=== PATIENT | male | born 1965 | race African-American/Black ===

== ENCOUNTER 2023-07-01 08:50 | Inpatient (IN) ==
--- NOTE | 2023-06-27 15:16 | Anesthesiology Consultation ---
Date of Service June 27, 2023 Assessment & Plan (1) Encounter for pre-operative examination: - medical out for the day 06/27/23, will call 06/30/[address] Vera to see if patient can walk up a flight of stairs without chest discomfort or shortness of breath and if so, can proceed as scheduled. Surgeon's office made aware. Called Melissa at [facility] 8:25: facility is on lockdown so she will try to arrange having questions answered by patient. Surgeon's office made aware. Melissa called office advising that per HEALTH TYPE TECHNICIAN with facility: patient is walking up flights of stairs denying chest discomfort or shortness of breath. He is acceptable to proceed per discussion with Dr. Vera. - check CBC with diff, BMP, coags, type and screen and UA STAT am DOS. Fluid orders to anesthesiologist review of labs am DOS. - no labs or UA ordered by surgeon received from patient's facility per PAT receptionist secretary. Surgeon's office made aware and advised PAT order labs DOS. - Per debt and budget counselor on 06/11/23: No known infectious disease contacts, current infectious disease symptoms in past 10 days or COVID positive test result in the past 30 days. COVID test ordered for DOS given patient residing at [facility]. Chart Review Chart Review: Acceptable Risk for Surgery and Patient NOT seen in Pre Admission Testing History Surgery Operation Date: 07/01/23 10:35 Proposed Procedures p L4-L5 Lateral Interbody Arthrodesis with Cage Placement, Posterior Non- Segmental Instrumentation, Spinal Cord Monitoring - Bhavesh Alarcon MD Height/Weight Height: 6 ft 1 in Weight: 104.78 kg Allergies Allergy/AdvReac Type Severity Reaction Status Date / Time No Known Allergies Allergy Verified 06/11/23 13:56 Medications Home Medications Medication Instructions Recorded Confirmed Last Taken amlodipine 5 mg tablet 5 mg PO QAM 04/15/22 06/11/23 02/04/23 atorvastatin 20 mg tablet 20 mg PO HS 04/15/22 06/11/23 02/04/23 celecoxib 200 mg capsule 200 mg PO BID 04/15/22 06/11/23 02/23/23 propylene glycol 0.6 % eye drops 1 drp ophthalmic (eye) DAILY PRN 04/15/22 06/11/23 01/24/23 (Systane Complete) Dry Eyes acetaminophen 500 mg tablet 1,000 mg PO BID PRN Pain 06/11/23 06/11/23 Unknown Past Medical History Medical History Corneal ulcer Eye disorder Hyperlipidemia Hypertension Inmate in correctional facility Localized swelling, mass and lump, left upper limb Low back pain Lumbar radiculopathy Nutritional deficiency Spinal stenosis of lumbar region Past Surgical History Surgical History Surgical history unknown Social History Smoking Status: Unknown if ever smoked Testing Electrocardiogram Date: 03/13/23 NSR, rate 66 bpm Possible septal infarct, age undetermined T wave abnormality, consider inferolateral ischemia Compared to 07/04/11 EKG, Septal infarct is now present Nonspecific T wave abnormality has replaced inverted T waves in anterior leads Chest X-Ray Date: 03/12/23 *1view* No acute cardiopulmonary findings. Other Testing Head and neck CTA 03/12/23 Negative CTA of head and neck
[~2023-07-01 08:50] MED LIST: DexMEDEtomidine HCL IV 100 MCG/ML VIAL IV ONE; REMIFENTANIL HCL 1 MG VIAL IV ONE
[2023-07-01] MEDS ORDERED: MIDAZOLAM HCL 1 MG/ML 2ML VIAL ONE (09:21)
[2023-07-01] MEDS ORDERED: fentaNYL citrate PF 100 MCG/2 ML VIAL ONE (09:21)
[2023-07-01] MEDS: LR 60ML/HR IV SCH (09:38)
[2023-07-01 09:47] LABS: Appearance Urine Clear (Clear); Bacteria Urine Automated None Seen (None Seen); Bilirubin Urine Negative (Negative); Blood Urine Trace (Negative); Cast Urine Automated 0-2 /lpf (0-2); Color Urine Yellow; Epithelial Cell Urine Auto 0-2 /hpf (0-2); Glucose Urine UA Negative (Negative); Ketones Urine Negative (Negative); Leukocyte Esterase Urine Negative (Negative); Nitrite Urine Negative (Negative); Protein Urine Negative (Negative); RBC Urine Automated 0-2 /hpf (0-2); Specific Gravity Urine 1.014 (1.000-1.030); Urobilinogen Urine Negative (Negative); WBC Urine Automated 0-5 /hpf (0-5); pH Urine 5.5 (4.5-7.5)
[2023-07-01 09:49] LABS: Basophils # (auto) 0.01 K/uL (0.00-0.20); Basophils % (auto) 0.3 %; Eosinophils % (auto) 2.8 %; Hematocrit (blood only) 40.6 % (42.0-52.0); Lymphocytes # (auto) 0.76 K/uL (1.20-3.40); Lymphocytes % (auto) 21.1 %; Mean Corpuscular Hemoglobin 30.6 pg (25.0-34.0); Mean Corpuscular Hgb Conc 34.5 g/dL (32.0-36.0); Mean Corpuscular Volume 88.6 fL (80.0-100.0); Mean Platelet Volume 11.2 fL (9.4-12.4); Monocytes # (auto) 0.64 K/uL (0.11-0.59); Monocytes % (auto) 17.7 %; Neutrophils % (auto) 58.1 %; Platelet Count 244 K/uL (130-400); RDW Coefficient of Variation 12.5 % (11.5-14.5); RDW Standard Deviation 40.6 fL (36.4-46.3); Red Blood Count 4.58 M/uL (4.70-6.10); White Blood Count 3.61 K/ul (4.8-10.8)
[2023-07-01] MEDS ORDERED: HYDROmorphone INJ 2 MG/ML SYR/VIAL IV PRN (09:53)
[2023-07-01] MEDS ORDERED: ATROPINE SULFATE 0.1 MG/ML 10ML SYR IV PRN (09:53)
[2023-07-01] MEDS ORDERED: fentaNYL citrate PF 100 MCG/2 ML VIAL IV PRN (09:53)
[2023-07-01] MEDS ORDERED: ONDANSETRON INJ 2 MG/ML 2 ML VIAL IV PRN ×2 (09:53→16:51)
[2023-07-01] MEDS ORDERED: ePHEDrine sulfate 50 MG/ML AMP IV PRN (09:53)
[2023-07-01 10:03] LABS: BUN Creatinine Ratio 15.2 (10-20); Calcium 9.4 mg/dl (8.6-10.3); Creatinine Clr Calc Pharmacy 130.6 ml/min; Est GFR (African American) 114.7 ml/min; Potassium 3.7 mmol/L (3.5-5.1)
[2023-07-01 10:18] LABS: Partial Thromboplastin Ratio 0.9; Partial Thromboplastin Time 26 Seconds (21-31)
[2023-07-01] MEDS ORDERED: PROPOFOL IV EMULSION 10 MG/ML 20 ML VIAL IV ONE ×5 (10:27→16:02)
[2023-07-01] MEDS ORDERED: SUCCINYLCHOLINE CHLORIDE 20 MG/ML 10 ML VIAL IV ONE (10:27)
[2023-07-01] MEDS ORDERED: ONDANSETRON INJ 2 MG/ML 2 ML VIAL ONE (10:27)
[2023-07-01] MEDS ORDERED: DEXAMETHASONE SOD INJ 4 MG/ML VIAL ONE (10:27)
[2023-07-01] MEDS ORDERED: LIDOCAINE 2% 2 ML VIAL/AMP(20MG/ML) INFIL ONE (10:27)
[2023-07-01] MEDS ORDERED: GLYCOPYRROLATE 0.2 MG/ML VIAL ONE (10:27)
[2023-07-01] MEDS ORDERED: diphenhydrAMINE 50 MG/ML VIAL ONE (10:27)
[2023-07-01] MEDS ORDERED: PROPOFOL IV EMULSION 10 MG/ML 100 ML VIAL IV ONE (10:29)
[2023-07-01] MEDS ORDERED: VANCOMYCIN CONSULT ACTIVE PRN ×2 (10:57→16:56)
--- NOTE | 2023-07-01 10:59 | History & Physical Bridge Note ---
Date of Service July 01, 2023 History & Physical Bridge Note I have examined the patient, reviewed the History & Physical and in the interval since the performance of the History & Physical I have noted the following changes of clinical significance: no changes noted
[2023-07-01] MEDS: VANCOMYCIN HCL 1,500 MG in SODIUM CHLORIDE 0.9% 500 ML IV STA (11:18)
[2023-07-01] MEDS ORDERED: ePHEDrine sulfate 50 MG/5 ML SYR ONE (12:46)
[2023-07-01] MEDS ORDERED: PHENYLEPHRINE 100MCG/ML 10ML SYR IV ONE (12:46)
[2023-07-01] MEDS ORDERED: PHENYLEPHRINE HCL 10 MG/ML VIAL ONE (12:46)
[2023-07-01] MEDS: BUPIVACAINE/EPINEPHRINE 0.5% MPF 1:200,000 30 ML VIAL ONE (14:30)
[2023-07-01] MEDS ORDERED: HYDROmorphone INJ 2 MG/ML SYR/VIAL ONE (14:57)
[2023-07-01] MEDS: VANCOMYCIN HCL 1000MG/20ML VIAL ONE (16:30)
--- NOTE | 2023-07-01 16:50 | Post Operative Brief Note ---
PG Immediate Post Op with CF Date of Surgery July 01, 2023 Pre & Post Diagnosis Operation Date: 07/01/23 10:35 Pre-Op Diagnosis: Degenrative Spondylolithesis, Lumbar Radiculopathy Post-Op Diagnosis: Degenrative Spondylolithesis, Lumbar Radiculopathy I identified the patient and participated in the time-out.: Yes Procedure Operation Date: 07/01/23 10:35 Actual Procedures p L4-L5 Lateral Interbody Arthrodesis with Cage Placement, Posterior Non- Segmental Instrumentation, Spinal Cord Monitoring(Not Applicable) - Bhavesh Alarcon MD Surgeon Bhavesh Alarcon MD Public Finance Specialist none Estimated Blood Loss 50 Findings Consistent with Post-Op Diagnosis Specimens Specimen Description: none per surgeon Drains Zuniga Catheter
[2023-07-01] MEDS ORDERED: diphenhydrAMINE Capsule 25 MG CAP PO PRN (16:51)
[2023-07-01] MEDS ORDERED: ALUMINUM/MAGNESIUM SUSP 30 ML UDC PO PRN (16:51)
[2023-07-01] MEDS ORDERED: ONDANSETRON 4 MG OD TAB PO PRN (16:51)
[2023-07-01] MEDS ORDERED: LORazepam 0.5 MG TAB PO PRN (16:51)
[2023-07-01] MEDS ORDERED: SOD PHOSPHATE/SOD BIPHOSPHATE ENEMA 132 ML BTL PR PRN (16:51)
[2023-07-01] MEDS ORDERED: METOCLOPRAMIDE HCL INJ 5 MG/ML 2 ML VIAL IV PRN (16:51)
[2023-07-01] MEDS ORDERED: bisacodyL 10 MG SUPP PR PRN (16:51)
[2023-07-01] MEDS ORDERED: ACETAMINOPHEN 1,000 MG/100 ML VIAL IV PRN (16:51)
[2023-07-01] MEDS ORDERED: DO NOT ADMINISTER FLU VACCINE PRN (16:51)
[2023-07-01] MEDS ORDERED: PROMETHAZINE HCL 12.5 MG in SODIUM CHLORIDE 0.9% 50 ML IV PRN (16:51)
[2023-07-01] MEDS ORDERED: FAMOTIDINE 20 MG TAB PO PRN (16:51)
[2023-07-01] MEDS ORDERED: hydrOXYzine HCl 25 MG TAB PO PRN (16:51)
[2023-07-01] MEDS ORDERED: HYDROmorphone INJ 0.5 MG/0.5 ML SYR IV PRN ×2 (16:51→17:07)
[2023-07-01] MEDS ORDERED: LORazepam 0.5 MG in SYRINGE 0.25 ML IV PRN (16:51)
[2023-07-01] MEDS ORDERED: DO NOT ADMINISTER PNEUMOCOCCAL VACCINE PRN (16:51)
[2023-07-01] MEDS ORDERED: MAGNESIUM HYDROXIDE SUSP 30 ML UDC PO PRN (16:51)
[2023-07-01] MEDS ORDERED: NALOXONE HCL 0.4 MG/1 ML VIAL/CARP IV PRN (16:51)
[2023-07-01] MEDS: GELATIN SPONGE 12-7MM ONE (17:07)
[2023-07-01] MEDS: THROMBIN 5000 UNITS KIT ONE (17:08)
--- NOTE | 2023-07-01 19:11 | Anesthesiology Progress Note ---
Date of Service July 01, 2023 Anesthesia Post Procedure Vital Signs Vital Signs: Temp Pulse Pulse Resp BP BP Pulse Ox 07/01/23 18:58 97.5 F L 81 16 137/93 99 07/01/23 18:35 97.2 F L 87 16 128/104 H 97 07/01/23 18:25 91 H 15 132/96 99 07/01/23 18:15 79 17 148/104 H 98 07/01/23 18:05 87 16 108/77 99 07/01/23 17:55 85 15 145/94 H 99 07/01/23 17:45 91 H 12 154/102 H 99 07/01/23 17:30 86 12 148/100 H 99 07/01/23 17:20 93 H 17 149/97 H 99 07/01/23 17:10 87 12 128/79 99 07/01/23 17:02 97.0 F L 88 16 128/96 99 07/01/23 09:38 98.2 F 67 18 132/81 97 O2 Del Method O2 Flow Rate 07/01/23 18:58 Nasal Cannula 2 07/01/23 18:35 Nasal Cannula 2 07/01/23 18:25 Nasal Cannula 3 07/01/23 18:15 Nasal Cannula 3 07/01/23 18:05 Nasal Cannula 3 07/01/23 17:55 Oxymask 6 07/01/23 17:45 Oxymask 6 07/01/23 17:30 Oxymask 6 07/01/23 17:20 Oxymask 9 07/01/23 17:10 Oxymask 9 07/01/23 17:02 Oxymask 9 07/01/23 09:38 Room Air Pain Intensity Right Leg: Pain Intensity: 6 Transfer of Care Handoff Completed per policy Notes Mental Status: alert / awake / arousable and participated in evaluation Patient Amnestic to Procedure: Yes Nausea / Vomiting: adequately controlled Pain: adequately controlled Airway Patency, RR, SpO2: stable & adequate BP & HR: stable & adequate Hydration State: stable & adequate Anesthetic Complications: no major complications apparent and Pt Satisfied with anesthetic care
--- NOTE | 2023-07-01 21:34 | Fluoroscopy Report ---
FL lumbar spine 2-3V CLINICAL HISTORY: L4-L5 LATERAL INTERBODY AND INSTRUMENTATION TECHNIQUE: 12 views were obtained with the C-arm in the OR with the above procedure. Total fluoroscop y time was 442.8 seconds. Radiation dose was 281.01 mGy. Comparison: Comparison is made to lumbar spine radiographs 10/28/2022 and lumbar spine MRI 02/26/2023 FINDINGS/IMPRESSION: Intraoperative images were obtained of L4-L5 interbody fusion. Please correlate with intraoperative fluoroscopy and operative report. ACT 112: Negative or not required by law. Electronically signed by: Sean Molina M.D. 07/01/2023 9:33 PM
[2023-07-01] MEDS: ceFAZolin 2000MG 2,000 MG/15 ML SYR IV SCH (22:28)
[2023-07-01] MEDS: DOCUSATE SODIUM/SENNA 50/8.6MG TAB PO SCH (22:55)
[2023-07-01] MEDS: LACTATED RINGER'S 1,000 ML IV SCH (22:55)
[2023-07-02] MEDS ORDERED: ARTIFICIAL TEARS OP PRN (00:28)
[2023-07-02] MEDS: VANCOMYCIN HCL 1,500 MG in SODIUM CHLORIDE 0.9% 500 ML IV SCH (01:18)
[2023-07-02] MEDS: POLYETHYLENE (MIRALAX) 17 GM PACK PO SCH (06:18)
[2023-07-02] MEDS: amLODIPine BESYLATE 5 MG TAB PO SCH (07:47)
[2023-07-02 09:33] LABS: Basophils # (auto) 0.01 K/uL (0.00-0.20); Basophils % (auto) 0.1 %; Hematocrit (blood only) 39.2 % (42.0-52.0); Hemoglobin 13.5 g/dl (14.0-18.0); Immature Granulocytes # (auto) 0.05 K/uL (0.01-0.20); Immature Granulocytes % (auto) 0.4 %; Lymphocytes # (auto) 0.89 K/uL (1.20-3.40); Lymphocytes % (auto) 7.8 %; Mean Corpuscular Hemoglobin 30.8 pg (25.0-34.0); Mean Corpuscular Hgb Conc 34.4 g/dL (32.0-36.0); Mean Corpuscular Volume 89.3 fL (80.0-100.0); Mean Platelet Volume 11.7 fL (9.4-12.4); Monocytes # (auto) 1.08 K/uL (0.11-0.59); Monocytes % (auto) 9.5 %; Neutrophils # (auto) 9.36 K/uL (1.40-6.50); Neutrophils % (auto) 82.2 %; Platelet Count 250 K/uL (130-400); RDW Coefficient of Variation 12.7 % (11.5-14.5); RDW Standard Deviation 41.7 fL (36.4-46.3); Red Blood Count 4.39 M/uL (4.70-6.10); White Blood Count 11.39 K/ul (4.8-10.8)
[2023-07-02 09:46] LABS: BUN Creatinine Ratio 13.8 (10-20); Creatinine Clr Calc Pharmacy 118.6 ml/min; Est GFR (African American) 110.3 ml/min; Est GFR (Non-African American) 95.1 ml/min; Potassium 3.7 mmol/L (3.5-5.1)
[2023-07-02] MEDS: ACETAMINOPHEN 500 MG TAB PO PRN (12:02)
--- NOTE | 2023-07-02 12:14 | Hospitalist Consultation ---
Date of Consultation July 02, 2023 Assessment & Plan (1) Degenerative spondylolisthesis: s/p L4-L5 lateral interbody arthrodesis with cage placement with Dr. Alarcon 06/30 - fluids, pain control and DVT proh per primary team - EBL 50cc (2) Postoperative fever: Febrile this morning, max temp 38.3 Associated tachycardia No chills or diaphoresis. no cough Given tylenol this afternoon WBC 11 this morning WIll check procal and crp today and labs again in the morning (3) Hyperlipidemia: continue statin (4) Hypertension: continue amlodipine Plan Dispo: recommend continued inpatient stay with fever this morning Thank you for allowing us to participate in the care of this patient, please reach out with any questions or concerns Case discussed with German Solorio, ortho LISA. History of Present Illness Reason for Consultation: medical management Requesting Physician: Agnes Attending Physician: Bhavesh Alarcon MD History of Present Illness Mr. Fabian is a 58M who presented for elective back surgery with Dr. Alarcon. he has a PMH of HLD and HTN. Seen today, overall feeling well but sore from his back. He has been febrile and tachycardic since this morning, but denies chills or diaphoresis. No Urinary symptoms. No cough has been using the incentive spirometer. Tolerating appetite without issue and passing flatus without issue. Has not seen PT yet. Allergies Allergy/AdvReac Type Severity Reaction Status Date / Time No Known Allergies Allergy Verified 07/01/23 09:24 Home Medications Medication Instructions Recorded Confirmed Type amlodipine 5 mg tablet 5 mg PO QAM 04/15/22 07/01/23 History atorvastatin 20 mg tablet 20 mg PO HS 04/15/22 07/01/23 History celecoxib 200 mg capsule 200 mg PO BID 04/15/22 07/01/23 History propylene glycol 0.6 % eye drops 1 drp ophthalmic (eye) DAILY PRN 04/15/22 07/01/23 History (Systane Complete) Dry Eyes acetaminophen 500 mg tablet 1,000 mg PO BID PRN Pain 06/11/23 07/01/23 History Patient History Medical History (Updated 07/02/23 @ 15:04 by Viji Velazquez PA-C) Inmate in correctional facility Nutritional deficiency Low back pain Localized swelling, mass and lump, left upper limb Eye disorder Corneal ulcer Lumbar radiculopathy Spinal stenosis of lumbar region Hyperlipidemia Hypertension Surgical History Surgical history unknown Social History Smoking Status: Unknown if ever smoked Tobacco Type: Cigarettes Preferred Language: Unknown Communication Ability: Effective Hearing Ability: Normal Steam Press Operator Required: No Current Living Situation: Other Current Living Situation Comment: [facility] Feels Safe at Home: Yes Assistive Devices Comment: unknown Review of Systems Review of Systems: All systems reviewed & are unremarkable except as noted in Subjective Physical Exam Physical Exam: General: NAD, sitting up in bed, appears well, VS as above Resp: normal respiratory effort, lungs clear to auscultation CV: RRR, no murmur, Abd: normal bowel sounds, non tender, no hepatosplenomegaly Extremities: Moves all extremities, no edema Back: dressing in place with shadowing Results & Data Results & Data Vital Signs (Past 12 Hours) Vital Signs Temp Pulse Pulse Resp BP Pulse Ox O2 Del Method 07/02/23 11:54 37.5 C 107 H 99 Room Air 07/02/23 11:14 37.6 C H 110 H 18 146/84 H 97 Room Air 07/02/23 10:08 37.4 C 07/02/23 10:00 38 C H 118 H 97 Room Air 07/02/23 07:29 38.3 C H 115 H 18 134/81 97 Room Air 07/02/23 03:01 37.1 C 114 H 18 150/94 H 99 Room Air Laboratory Results CBC and chemistry reviewed PG Care Time/CCT Total # of Minutes Spent Total Time Spent with Patient: Total time spent is greater than 50% in coordination of care (as documented) at patient's floor/unit and/or counseling patient: Coding Level of Care Code 31771 IN/OBS CONSULT LVL 3,45M Diagnoses Degenerative spondylolisthesis M43.10 Postoperative fever R50.82 Hyperlipidemia E78.5 Hypertension I10
--- NOTE | 2023-07-02 15:39 | Operative Report ---
PG Post Operative Report Pre & Post Diagnosis Operation Date: 07/01/23 10:35 Pre-Op Diagnosis: Degenrative Spondylolithesis, Lumbar Radiculopathy Post-Op Diagnosis: Degenrative Spondylolithesis, Lumbar Radiculopathy I identified the patient and participated in the time-out.: Yes Procedure Operation Date: 07/01/23 10:35 Actual Procedures p L4-L5 Lateral Interbody Arthrodesis with Cage Placement, Posterior Non- Segmental Instrumentation, Spinal Cord Monitoring(Not Applicable) - Bhavesh Alarcon MD Surgeon Bhavesh Alarcon MD Client Services Assistant none Estimated Blood Loss 50 Findings Consistent with Post-Op Diagnosis Specimens none Description of Procedure 1. L4-5 left lateral interbody arthrodesis, retroperitoneal approach (95141) 2. Insertion of intervertebral device, NuVasive cohere cage 10 x 22 x 60 mm lordotic (17257) 3. Posterior nonsegmental instrumentation, NuVasive reline (03966) Patient was taken the operating room after adequate anesthesia was carefully positioned in right lateral decubitus position, left side up on the OR table. Positioning was then completed for the procedure and using fluoroscopy I then visualized the L4-5 segment and aligned it for the procedure. Once this was complete preprepped was performed followed by marking and then prepping and draping. Transverse incision was made just over the left iliac crest, and through this I then dissected down carefully subcutaneous tissues to just over the iliac crest. Dissecting through the fascial layer was able to enter the retroperitoneal region followed by then careful manipulation of the tissues anteriorly and then insertion of the initial dilator from the NuVasive set. This was then inserted and advanced down to the lateral aspect of the L4-5 interspace using combination of fluoroscopy and the monitoring. Once is able to locate a proper starting point at about the midportion of the L4-5 disc space, I then inserted the guidewire followed by the initial dilators using monitoring and then the access apparatus. This was then fixed to the table adjustments were made using fluoroscopy, and I then completed the inspection with utilizatio n of the probe inspecting the region. With this completed and found not to have any structures within the opening, I then inserted the cathy followed by then inserting and incising the lateral annulus. An annulotomy was performed followed by then utilizing a number of different instruments to remove the disc material across the disc space. A thorough discectomy was completed with removal of cartilage from the endplates and I continued this process using fluoroscopic control. Trials were then inserted, I elected to go to a 22 mm wide cage, and a 10 mm this provided distraction of the interspace at this level to achieve the indirect decompression. The cage was obtained, and fusion materials were then packed within it and then also in the disc base before inserting the cage. Cage was then advanced into position without issues with excellent placement on AP and lateral views. Final images were obtained, I then removed the access apparatus no issues were noted, vancomycin powder had been placed followed by then closure using 0 and 2-0 Vicryl suture tomeka for the skin, sterile dressing is applied. Patient was then repositioned in prone position on the OSI Sean top table, a preprepped was performed followed by bringing in fluoroscopy where I marked for the approximate location for the bilateral incisions for the insertion of the instrumentation. Prep and drape was performed, and then began the procedure using fluoroscopic Introl to locate the approximate area for the incisions made on both sides for access to the pedicles at L4 and L5. Using the Jamshidi needles I was able to advance these into the L5 vertebral body bilaterally with excellent position and confirmed on monitoring to be in the proper location and fluoroscopy. Guidewires were then set followed by insertion of 5.5 mm taps and then insertion of 6.5 millimeter screws both at this level and in a similar fashion at the L4 level without issue. I then measured for the rods to be inserted which were inserted utilizing the tool through the guides, the inferior screws were then fixed in a slightly proud location relative to the L4 screws and I use a reduction tool to provide a slight amount of continued reduction of the spondylolisthesis. All setscrews were then torqued down properly, final images were obtained, I irrigated and then closed the operative sites with a combination of 0 Vicryl sutures for the fascial layer 2-0 Vicryl sutures and tomeka to skin, vancomycin had been placed in the operative site along with local anesthetic. The patient tolerated procedure well was taken recovery room in satisfactory condition. I attest to the content of the Intraoperative Record and any orders documented therein. Any exceptions are noted below.
[2023-07-02] MEDS: oxyCODONE/ACETAMINOPHEN 5mg/325mg TAB PO PRN (16:50)
[2023-07-02] MEDS: ATORVASTATIN 20 MG TAB PO SCH (22:18)
[2023-07-03 08:06] LABS: Basophils # (auto) 0.03 K/uL (0.00-0.20); Basophils % (auto) 0.3 %; Eosinophils # (auto) 0.01 K/uL (0.00-0.50); Eosinophils % (auto) 0.1 %; Hematocrit (blood only) 39.1 % (42.0-52.0); Hemoglobin 13.6 g/dl (14.0-18.0); Immature Granulocytes # (auto) 0.05 K/uL (0.01-0.20); Immature Granulocytes % (auto) 0.5 %; Lymphocytes # (auto) 0.78 K/uL (1.20-3.40); Lymphocytes % (auto) 7.5 %; Mean Corpuscular Hemoglobin 30.8 pg (25.0-34.0); Mean Corpuscular Hgb Conc 34.8 g/dL (32.0-36.0); Mean Corpuscular Volume 88.7 fL (80.0-100.0); Mean Platelet Volume 11.1 fL (9.4-12.4); Monocytes # (auto) 1.61 K/uL (0.11-0.59); Monocytes % (auto) 15.4 %; Neutrophils # (auto) 7.96 K/uL (1.40-6.50); Neutrophils % (auto) 76.2 %; Platelet Count 227 K/uL (130-400); RDW Coefficient of Variation 12.7 % (11.5-14.5); RDW Standard Deviation 41.9 fL (36.4-46.3); Red Blood Count 4.41 M/uL (4.70-6.10); White Blood Count 10.44 K/ul (4.8-10.8)
[2023-07-03 08:26] LABS: BUN Creatinine Ratio 9.3 (10-20); C Reactive Protein 7.07 mg/dl (0-0.5); Calcium 8.9 mg/dl (8.6-10.3); Est GFR (African American) 110.8 ml/min; Est GFR (Non-African American) 95.6 ml/min; Potassium 3.6 mmol/L (3.5-5.1)
--- NOTE | 2023-07-03 09:48 | XRay Report ---
XR chest 1V portable CLINICAL HISTORY: febrile TECHNIQUE: Single frontal radiograph of the chest was obtained. Comparison: Comparison is made to chest radiograph 03/13/2023 FINDINGS: No lines and tubes are seen. The cardiomediastinal silhouette is normal. The lungs are clear. No evid ence of pleural effusion or pneumothorax. IMPRESSION: No acute abnormalities and in particular no radiographic evidence of pneumonia. ACT 112: Negative or not required by law. Electronically signed by: Sean Molina M.D. 07/03/2023 9:46 AM
--- NOTE | 2023-07-03 10:11 | Orthopedic Progress Note ---
Date of Service July 03, 2023 Assessment & Plan (1) Status post lumbar spine surgery for decompression of spinal cord: At this point, I do not feel that his surgical sites are the cause for him being febrile. I do have a suspicion that he may have an underlying infection burrowing from another source. Hospitalist service is on board with him. They are completing a new chest x-ray today as well as a urinary analysis. At this point, I do not feel that he will be discharged today until we can figure out the source of this fever. He may work with physical therapy today if he feels up to it. Weightbearing as tolerated. I do feel that he is having a little bit of ischial bursitis and this may be because due to position in nature. I did note that he should try to refrain from laying on his left side or at least do frequent position changes to see if this may help. Continue current analgesic regiment. He should not have any NSAIDs for at least [address] Alarcon. Will continue to monitor. Subjective .Isaias was seen today resting at bedside. Dressing changes were completed today with the nurse. He has been complaining about some lateral posterior pain that is adjacent to the ischial bursa as has been going on for the last day. He is also been continuously febrile for the last 24 hours. He really does not complain about any discomfort right at the surgical incision sites itself. He does note that when he stands up he does have a little bit of shooting pain from the ischial tuberosity down his leg. He does note of significance that he has been laying on his left side consistently for the last 24 hours. He does note that he tends to lay/sit on the left side. He denies any other issues today. Review of Systems All systems reviewed & are unremarkable except as noted in HPI & below. Physical Exam . On physical examination of the lumbar spine as well as the lower extremity, dressings were changed and did show slight serosanguineous discharge on the bandage that covered the left lateral surgical site. No active drainage, erythema, warmth to touch, or tenderness out of proportion throughout the surgical sites. Does have tenderness to palpation over the ischial tuberosity. Lower extremity motor and sensory grossly intact. +2 DP and PT pulse. Less than 2-second capillary refill. Normal sensation. Neurovascular intact. Results & Data Results & Data Laboratory Results . Abnormal lab results 07/02/23 07/03/23 Range/Units 16:07 07:20 RBC 4.41 L (4.70-6.10) M/uL Hgb 13.6 L (14.0-18.0) g/dl Hct 39.1 L (42.0-52.0) % Neut # (Auto) 7.96 H (1.40-6.50) K/uL Lymph # (Auto) 0.78 L (1.20-3.40) K/uL Tripp # (Auto) 1.61 H (0.11-0.59) K/uL BUN/Creatinine Ratio 9.3 L (10-20) Glucose 139 H (70-99(Fasting)) mg/dl C-Reactive Protein 2.75 H 7.07 H (0-0.5) mg/dl Diagnostic Findings . PG Care Time/CCT Total # of Minutes Spent Total Time Spent with Patient: Total time spent is greater than 50% in coordination of care (as documented) at patient's floor/unit and/or counseling patient: Coding Level of Care Code 54800 Post Operative Follow-Up Diagnoses Status post lumbar spine surgery for decompression of spinal cord Z98.890
--- NOTE | 2023-07-03 10:55 | Hospitalist Progress Note ---
Date of Service July 03, 2023 Assessment & Plan (1) Degenerative spondylolisthesis: Plan: s/p L4-L5 lateral interbody arthrodesis with cage placement with Dr. Alarcon 06/30 - fluids, pain control and DVT proh per primary team - EBL 50cc (2) Postoperative fever: Plan: Febrile this morning, max temp 38.3. Associated tachycardia No chills or diaphoresis. no cough Source unclear - ortho present for dressing change 07/02, reporting does not appear infection - CXR without PNA - UA without signs of infection - respiratory viral panel negative At this point, will not pursue any other sources of infection without new symptoms. Will recheck labs and recommend reeval of wound in AM Continue IS (3) Hyperlipidemia: Plan: continue statin (4) Hypertension: Plan: continue amlodipine Plan Dispo: recommend continued inpatient stay with fever this morning Thank you for allowing us to participate in the care of this patient, please reach out with any questions or concerns Case discussed with German Solorio ortho LISA. Admission and Anticipated Discharge Date Admission Date: July 01, 2023 Subjective patient seen resting in bed. Still febrile and tachycardic. He does not report any new symptoms such as cough, pain, chills, diaphoresis. Urinating without issues. Denies sick contacts. no BM since surgery Review of Systems Review of Systems: All systems reviewed & are unremarkable except as noted in Subjective Physical Exam Physical Exam: General: NAD, sitting up in bed, appears well, VS as above Resp: normal respiratory effort, lungs clear to auscultation CV: tachycardic, no murmur, Abd: normal bowel sounds, non tender, no hepatosplenomegaly Extremities: Moves all extremities, no edema. No calf tenderness Back: dressing in place c/d/i Results & Data Results & Data Vital Signs (Past 12 Hours) Vital Signs Temp Pulse Resp BP Pulse Ox O2 Del Method 07/03/23 06:18 38.3 C H 112 H 16 146/95 H 96 Room Air Laboratory Results CBC, chemistry and CRP reviewed PG Care Time/CCT Total # of Minutes Spent Total Time Spent with Patient: Total time spent is greater than 50% in coordination of care (as documented) at patient's floor/unit and/or counseling patient: Coding Level of Care Code 68208 SUB INP/OBS CARE 2/35MIN Diagnoses Degenerative spondylolisthesis M43.10 Postoperative fever R50.82 Hyperlipidemia E78.5 Hypertension I10
[2023-07-03 12:48] LABS: Appearance Urine Clear (Clear); Bacteria Urine Automated None Seen (None Seen); Bilirubin Urine Negative (Negative); Blood Urine 1+ (Negative); Color Urine Yellow; Epithelial Cell Urine Auto 0-2 /hpf (0-2); Glucose Urine UA Negative (Negative); Ketones Urine Negative (Negative); Leukocyte Esterase Urine Negative (Negative); Nitrite Urine Negative (Negative); Protein Urine Trace (Negative); Specific Gravity Urine 1.016 (1.000-1.030); Urobilinogen Urine Negative (Negative); WBC Urine Automated 0-5 /hpf (0-5)
[2023-07-03 15:10] LABS: Adenovirus PCR Not Detected (NotDetected); Bordetella parapertussis PCR Not Detected (NotDetected); Bordetella pertussis PCR Not Detected (NotDetected); Chlamydia pneumoniae PCR Not Detected (NotDetected); Coronavirus 229E PCR Not Detected (NotDetected); Coronavirus CoV-2 (COVID19)PCR Not Detected (NotDetected); Coronavirus HKU1 PCR Not Detected (NotDetected); Coronavirus NL63 PCR Not Detected (NotDetected); Coronavirus OC43PCR Not Detected (NotDetected); Human Metapneumovirus PCR Not Detected (NotDetected); Influenza A PCR Not Detected (NotDetected); Influenza B PCR Not Detected (NotDetected); Mycoplasma pneumoniae PCR Not Detected (NotDetected); Parainfluenza Virus 1 PCR Not Detected (NotDetected); Parainfluenza Virus 2 PCR Not Detected (NotDetected); Parainfluenza Virus 3 PCR Not Detected (NotDetected); Parainfluenza Virus 4 PCR Not Detected (NotDetected); Respiratory Syncytial VirusPCR Not Detected (NotDetected); Rhinovirus/Enterovirus PCR Not Detected (NotDetected)
[2023-07-04 06:30] LABS: Basophils # (auto) 0.03 K/uL (0.00-0.20); Basophils % (auto) 0.3 %; Eosinophils # (auto) 0.07 K/uL (0.00-0.50); Eosinophils % (auto) 0.7 %; Hematocrit (blood only) 39.9 % (42.0-52.0); Hemoglobin 13.7 g/dl (14.0-18.0); Immature Granulocytes # (auto) 0.04 K/uL (0.01-0.20); Immature Granulocytes % (auto) 0.4 %; Lymphocytes % (auto) 10.4 %; Mean Corpuscular Hemoglobin 30.3 pg (25.0-34.0); Mean Corpuscular Hgb Conc 34.3 g/dL (32.0-36.0); Mean Corpuscular Volume 88.3 fL (80.0-100.0); Mean Platelet Volume 10.9 fL (9.4-12.4); Monocytes # (auto) 1.58 K/uL (0.11-0.59); Monocytes % (auto) 16.5 %; Neutrophils # (auto) 6.85 K/uL (1.40-6.50); Neutrophils % (auto) 71.7 %; Platelet Count 227 K/uL (130-400); RDW Coefficient of Variation 12.8 % (11.5-14.5); RDW Standard Deviation 41.4 fL (36.4-46.3); Red Blood Count 4.52 M/uL (4.70-6.10); White Blood Count 9.57 K/ul (4.8-10.8)
[2023-07-04 06:50] LABS: BUN Creatinine Ratio 10.1 (10-20); C Reactive Protein 10.34 mg/dl (0-0.5); Calcium 9.3 mg/dl (8.6-10.3); Creatinine Clr Calc Pharmacy 130.6 ml/min; Est GFR (African American) 114.7 ml/min; Potassium 3.9 mmol/L (3.5-5.1)
--- NOTE | 2023-07-04 07:09 | Orthopedic Progress Note ---
Date of Service July 04, 2023 Subjective . Patient seen and examined, he notes continued improvement with minimal or no incisional or back pain. He notes an improvement in his lower extremity numbness and tingling. Afebrile vital signs stable. Incisions unremarkable. WBC 9.57, chest x-ray unremarkable Patient to be discharged today with follow-up in 2 weeks, no anti-inflammatories as a pain medication, acetaminophen only. Review of Systems All systems reviewed & are unremarkable except as noted in HPI & below. Physical Exam . Results & Data Results & Data Laboratory Results . Diagnostic Findings . PG Care Time/CCT Total # of Minutes Spent Total Time Spent with Patient: Total time spent is greater than 50% in coordination of care (as documented) at patient's floor/unit and/or counseling patient: Coding Level of Care Code 15528 Post Operative Follow-Up
--- NOTE | 2023-07-04 09:55 | Hospitalist Progress Note ---
Date of Service July 04, 2023 Assessment & Plan (1) Degenerative spondylolisthesis: Plan: s/p L4-L5 lateral interbody arthrodesis with cage placement with Dr. Alarcon 06/30 - fluids, pain control and DVT proh per primary team - EBL 50cc (2) Postoperative fever: Plan: Febrile 07/02, max temp 38.3. Associated tachycardia No chills or diaphoresis. no cough Source unclear - ortho present for dressing change 07/02, reporting does not appear infection - CXR without PNA - UA without signs of infection - respiratory viral panel negative No new symptoms, however CRP continues to rise. - Will obtain blood cultures. Continue IS (3) Hyperlipidemia: Plan: continue statin (4) Hypertension: Plan: continue amlodipine Plan Dispo: if patient remains afebrile and wound looks uninfected, discharge seems reasonable with outpatient follow up with blood culutres Thank you for allowing us to participate in the care of this patient, please reach out with any questions or concerns Admission and Anticipated Discharge Date Admission Date: July 03, 2023 Subjective Patient seen resting in bed, had been ambulating in the mascorro prior. some pain in right thigh and lower back. Left hip pain has improved. No new cough, dsyuria. Did report episode of lightheadedness and diaphoresis this morning while sitting on the toilet, symptoms spontaneous resolved. Denies chills. Review of Systems Review of Systems: All systems reviewed & are unremarkable except as noted in Subjective Physical Exam Physical Exam: General: NAD, sitting up in bed, appears well, VS as above Resp: normal respiratory effort, lungs clear to auscultation CV: RRR, no murmur, Abd: normal bowel sounds, non tender, no hepatosplenomegaly Extremities: Moves all extremities, no edema. No calf tenderness Back: dressing in place c/d/i Results & Data Results & Data Vital Signs (Past 12 Hours) Vital Signs Temp Pulse Resp BP Pulse Ox O2 Del Method 07/04/23 07:23 36.8 C 95 H 18 150/96 H 96 Room Air Laboratory Results CBC, chemistry, crp and resp viral panel reviewed PG Care Time/CCT Total # of Minutes Spent Total Time Spent with Patient: Total time spent is greater than 50% in coordination of care (as documented) at patient's floor/unit and/or counseling patient: Coding Level of Care Code 64804 SUB INP/OBS CARE 50MIN Diagnoses Degenerative spondylolisthesis M43.10 Postoperative fever R50.82 Hyperlipidemia E78.5 Hypertension I10
--- NOTE | 2023-07-04 11:53 | Discharge Summary ---
Date of Service July 04, 2023 Principal Diagnosis Same as "Discharge Diagnosis" noted below under Discharge Instructions. Discharge Exam .On physical examination of the lumbar spine as well as the lower extremity, dressings were changed and did show slight serosanguineous discharge on the bandage that covered the left lateral surgical site. No active drainage, erythema, warmth to touch, or tenderness out of proportion throughout the surgical sites. Does have tenderness to palpation over the ischial tuberosity. Lower extremity motor and sensory grossly intact. +2 DP and PT pulse. Less than 2-second capillary refill. Normal sensation. Neurovascular intact. Discharge Data Consultations 07/01/23 16:56 Consult Hospitalist Routine Procedures Performed Operation Date: 07/01/23 10:35 Actual Procedures p L4-L5 Lateral Interbody Arthrodesis with Cage Placement, Posterior Non- Segmental Instrumentation, Spinal Cord Monitoring(Not Applicable) - Bhavesh Jackson MD Ordered Studies 07/01/23 10:35 FL lumbar spine 2-3V Routine Hospital Course (1) Status post lumbar spine surgery for decompression of spinal cord: On July 01, 2023 Isaias arrived at [facility] and underwent a L4-L5 lateral interbody arthrodesis with cage placement, posterior nonsegmental instrumentation, spinal cord monitoring performed by Dr. Jackson with no complications. He had a general anesthetic. Postoperatively, he was transferred to the PACU for immediate postoperative care and then transferred to the general orthopedic floor in stable condition. On postoperative day 1, he was a little febrile with a little bit of increased tachycardia. He was able to participate with physical therapy working on ambulation and range of motion exercises. Due to his fever and tachycardia, the hospitalist service felt that he was not stable for discharge. No other significant events occurred on this day. On postoperative day #2, he he was again febrile with tachycardia. Surgical sites were assessed and did not appear to be infectious in nature. Hospitalist service did run a urinary analysis on him as well as another chest x-ray which both showed no significant pathology. Again they did not recommend his discharge at this point. On postoperative day #3, his vital signs were stable and his pain was well-controlled. He again participated well with physi petra therapy working on ambulation and range of motion exercises. Hospital service deemed him medically stable for discharge. He was [facility] the [facility] in [facility] condition. He will follow-up with Dr. Jackson in 2 to 3 weeks for postoperative management. PG Care Time/CCT Total # of Minutes Spent Total Time Spent with Patient: Total time spent is greater than 50% in coordination of care (as documented) at patient's floor/unit and/or counseling patient: Discharge Plan Discharge Items [facility] Disposition: [facility] Reason For Visit: SURGERY Discharge Diagnosis: Same Activity: Per Instructions section Non-emergency contact: Surgeon Call non-emergency contact if: your temperature is above 101.5, your wound has increased redness, your wound has increased drainage and your wound pain has increased Follow-up/Referrals: Alison PALMER [Primary Care Provider] - Diet: Regular Addtl Attending Provider Instructions: Please follow Dr. Jackson Post Operative Instructions that were given in the office upon scheduling surgery. -Dressings will be changed prior to discharge. -Keep Surgical site dry for the next 3 days. -May shower after 3 days with no soaking of the surgical site -May leave surgical site open to air if dry. -Cover the surgical site with a bandage if draining or getting caught on clothes. -Take it easy for the next 2 weeks. (Ex: No Lifting, running, bending, or twisting, etc.). NO NSAIDS FOR ATLEAST 2 MONTHS POST OP. MUST BE CLEARED BY DR. JACKSON BEFORE RESUMING -You will F/u with Dr. Jackson in 2 weeks for postoperative care. -If any questions or concerns in the mean time, Reach out to [facility] at [phone] [facility] [employer] Specialist Provider Instructions: [facility] Medicine: - febrile on and off while inpatient - CXR, UA and respiratory viral panel without signs on infection - Blood cultures drawn 07/03 will need followed up on Pending Studies at Discharge: Yes (blood cultures ) Skilled Items Patient informed of condition?: Yes Discharge Level of Care: Other Communicable Disease: No Discharge Prognosis: Stable Lines: None Urinary Catheter: No Medications and DC Order Prescriptions: Continued Systane Complete 0.6 % drops 1 drp ophthalmic (eye) DAILY PRN (Reason: Dry Eyes) atorvastatin 20 mg tablet 20 mg PO HS amlodipine 5 mg tablet 5 mg PO QAM acetaminophen 500 mg Tablet 1,000 mg PO BID PRN (Reason: Pain) Discontinued celecoxib 200 mg capsule 200 mg PO BID Discharge Orders: Discharge Order (Routine); Ordered 07/04/23 Ordered By: German Solorio Admission Data Admit Date/Time: 07/03/23 16:01 Attending Provider: Bhavesh Jackson Admit Provider: Bhavesh Jackson Primary Care Provider: Alison PALMER Other Providers: José Miguel Valenzuela Other Interventions: Discharge Summary Assessment (RN) Last Done: 07/04/23 09:59
== END 2023-07-04 12:39 | DRG 460 ==
LOC: 3E 08:50 → ASU 08:50

== ENCOUNTER 2024-10-21 07:03 | Observation (INO) ==
--- NOTE | 2024-10-20 08:30 | Anesthesiology Consultation ---
Date of Service October 20, 2024 Assessment & Plan (1) Encounter for pre-operative examination: - medical clearance 10/19/24: "...may proceed to OR for TKA, labs checked, EKG ordered, low cardiac risk in adrian-op period..." Young with surgeon's office advised myself that the skilled nursing obtained a CXR today on patient as they thought it was required for surgery, but it will not result prior to surgery. Young states she spoke with Dr. Marina as he did not order one/and states he advised does not need report and it was documented in error as being needed in H&P. Case discussed in detail with Dr. Hargrove who advised patient is acceptable to proceed without CXR report. - Outpatient joint assessment: Patient is currently scheduled for inpatient pathway. If re-evaluated and patient/surgeon requests outpatient pathway, patient is not advised candidate for outpatient joint program from anesthesia standpoint. - Per environmental conservation professor on 10/20/24: No known infectious disease contacts, current infectious disease symptoms in past 10 days or COVID positive test result in the past 30 days. Chart Review Chart Review: Acceptable Risk for Surgery and Patient NOT seen in Pre Admission Testing History Surgery Operation Date: 10/21/24 09:10 Proposed Procedures p Right Total Knee Arthroplasty - Sang Marina MD Height/Weight Height: 6 ft 1 in Weight: 105 kg Allergies Allergy/AdvReac Type Severity Reaction Status Date / Time No Known Allergies Allergy Verified 10/20/24 14:01 Medications Home Medications Medication Instructions Recorded Confirmed Last Taken amlodipine 5 mg tablet 5 mg PO QAM 04/15/22 10/20/24 06/29/23 atorvastatin 20 mg tablet 20 mg PO QAM 04/15/22 10/20/24 06/29/23 celecoxib 200 mg capsule (Celebrex) 200 mg PO BID 10/20/24 10/20/24 Unknown Past Medical History Medical History (Updated 10/20/24 @ 14:04 by Freida Schumacher RN) Corneal ulcer Eye disorder Hyperlipidemia Hypertension Inmate in correctional facility Localized swelling, mass and lump, left upper limb Low back pain Osteoarthritis, knee Seasonal allergic rhinitis Past Surgical History Surgical History (Updated 10/20/24 @ 14:05 by Freida Schumacher RN) History of lumbar surgery (07/01/23) L4-L5 Lateral Interbody Arthrodesis with Cage Placement, Posterior Non- Segmental Instrumentation>MN Surgical history unknown Social History Smoking Status: Unknown if ever smoked Testing Laboratory Results 10/08/24 WBC: 3.2 H/H: 13/43 PLATELETS: 264,000 SODIUM: 141 POTASSIUM: 4 CHLORIDE: 105 CO2: 23 BUN: 10 CREATININE: 0.9 GLUCOSE: 99 Alk phos: 101 AST: 200 ALT: 13 PT: 11.7 INR: 1 UA: negative Urine culture: multiple organisms consistent with urethral robyn present at > 10,000 cfu/ml; no predominant organism present Electrocardiogram Date: 10/19/24 *unconfirmed* Significant artifact in lateral leads Other Testing Head and neck CTA 03/12/23 Negative CTA of head and neck
[~2024-10-21 07:03] MED LIST changes: +BUPIVACAINE 0.5 % 5 MG/1 ML PF 10ML VIAL ONE; -DexMEDEtomidine HCL IV 100 MCG/ML VIAL IV ONE; +EPINEPHrine INJ 1 MG/ML AMP ONE; +PROPOFOL IV EMULSION 10 MG/ML 100 ML VIAL IV ONE; -REMIFENTANIL HCL 1 MG VIAL IV ONE; +ROPIVACAINE 0.5% 5 MG/ML 30 ML VIAL ONE
[2024-10-21] MEDS ORDERED: LIDOCAINE 2% 2 ML VIAL/AMP(20MG/ML) INFIL ONE (07:35)
[2024-10-21] MEDS ORDERED: MIDAZOLAM HCL 1 MG/ML 2ML VIAL ONE (07:38)
[2024-10-21] MEDS: LR 500ML BOLUS, THEN 15ML/HR IV SCH (08:09)
[2024-10-21] MEDS: ACETAMINOPHEN 500 MG TAB PO SCH ×2 (08:14→14:57)
[2024-10-21] MEDS: FAMOTIDINE 20 MG TAB PO SCH (08:14)
[2024-10-21] MEDS: CeleBREX 200 MG CAP PO SCH (08:14)
[2024-10-21] MEDS: dexAMETHasone**PF** 10 MG/ML VIAL IV SCH (08:15)
[2024-10-21] MEDS: TRANEXAMIC ACID 1,000 MG **IV Pre-op IV SCH (08:31)
--- NOTE | 2024-10-21 08:31 | History & Physical Bridge Note ---
Date of Service October 21, 2024 History & Physical Bridge Note I have examined the patient, reviewed the History & Physical and in the interval since the performance of the History & Physical I have noted the following changes of clinical significance: no changes noted
[2024-10-21] MEDS ORDERED: PROPOFOL IV EMULSION 10 MG/ML 20 ML VIAL IV ONE (08:55)
[2024-10-21] MEDS ORDERED: KETAMINE HCL 10MG/ML SYR ONE (08:56)
[2024-10-21] MEDS ORDERED: DexMEDEtomidine HCL IV 100 MCG/ML VIAL IV ONE (09:27)
[2024-10-21] MEDS ORDERED: HYDROmorphone INJ 2 MG/ML SYR/VIAL ONE (09:33)
[2024-10-21] MEDS ORDERED: GLYCOPYRROLATE 0.2 MG/ML VIAL ONE (09:34)
[2024-10-21] MEDS ORDERED: ONDANSETRON INJ 2 MG/ML 2 ML VIAL ONE (09:53)
[2024-10-21] MEDS: ROPIV 0.5% 246mg, Ketorolac 30mg, EPINEPHrine 0.5mg in NSS INFIL SCH (10:07)
--- NOTE | 2024-10-21 11:02 | Operative Report ---
Post Operative Report Pre & Post Diagnosis Operation Date: 10/21/24 09:10 Pre-Op Diagnosis: Right Knee Osteoarthritis Post-Op Diagnosis: Right Knee Osteoarthritis I identified the patient and participated in the time-out.: Yes Procedure Operation Date: 10/21/24 09:10 Actual Procedures p Right Total Knee Arthroplasty(Right) - Sang Marina MD Surgeon Sang Marina MD [facility] Worker Orlin Ernst PA-C. No resident or fellow was available to assist Estimated Blood Loss 100 Findings Consistent with Post-Op Diagnosis Specimens Right knee bone and soft tissue contents Anesthesia Type General Regional Complications none Disposition Disposition: Recovery Room Indications 59-year-old male with right knee osteoarthritis refractory to conservative management. X-rays demonstrate varus malalignment, tricompartmental osteophyte formation and severe joint space narrowing. I do long discussion with him about the risks and benefits of surgery, alternatives to surgery, and expected outcomes. After reviewing all these he elected to proceed with surgery. All questions were answered. Informed consent was signed. Description of Procedure Patient was identified in the preoperative holding area where the surgical site, right knee, was marked. Adductor canal block was placed by anesthesia. Patient was brought back to the operating room, placed on the operating room table, and general anesthesia was administered. A bump was placed underneath the ipsilateral hip. All bony prominences were padded. Perioperative antibiotics and tranexamic acid were administered. Exam under anesthesia was performed. This demonstrated range of motion arc from 15 to 85 degrees. Stable to varus and valgus stress test at 30 degrees. The surgical site was prepped and draped in the normal sterile fashion. Prior to incision a multidisciplinary timeout was called. All in the room were in agreement. We began by exsanguinating the limb with an Esmarch bandage. Tourniquet was inflated to 250 mmHg. A 14 cm long incision was made over the anterior aspect of the knee. I dissected through the subcutaneous tissues to the level of the fascia. Full-thickness flaps were raised above the fascia. A median parapatellar arthrotomy was made. Half the fat pad was excised. A medial release was performed with Bovie electrocautery on the proximal tibia. Synovitis in the knee and suprapatellar pouch was removed. The patella was then everted and held with 2 towel clips. The thickness of the patella was measured at 26 mm. Patellar resection was performed. Caliper showed the patella thickness now to be 16 mm. A size 41 trial was placed, centered on the cut surface. There was still a little bit of the bone uncovered, however this is the largest patellar component. The 3 drill holes were placed then the trial button was placed. The patellar thickness was now 26 mm which I was very happy with. The patellar trial was then removed, and the knee was flexed up. Retractors were placed to protect the MCL and LCL. Osteophytes were removed from the femoral condyles and intercondylar notch. The ACL and PCL were excised. Intramedullary drill guide was drilled into the femur. Distal femoral cutting guide was placed set at 5 degrees of valgus to resect 12 mm off the distal femur because of his flexion contracture. Distal femoral resection was made without difficulty. Next the epicondylar axis and Whitesides line were marked out on the distal femoral cut. Femoral sizing guide was placed. External rotation was set at 3 degrees so that the posterior cut would be parallel with the epicondylar axis and perpendicular with Whitesides line. The patient sized to a size 7 femur. 2 pins were then placed through the jig into the distal femur. The jig was removed and the appropriately sized 4-in-1 cutting jig was placed over the pins, then fixated to the bone using threaded, headed pins. We confirmed that we would not notch the femur with our anterior cut. Our 4 cuts were then made. The cutting jig was removed. The tibia was then exposed. The lateral meniscus was sharply excised. The tibial cutting jig was positioned in line with the tibial shaft in the coronal plane and with 3 degrees of posterior slope in the sagittal plane to resect 4 mm off the more involved medial tibial plateau. The jig was then pinned in position and the tibial cut was made. We then brought the knee into full extension. Lamina spreaders were placed. The medial meniscus was excised. The extension block was then placed for 6 mm thickness poly. This gave us full extension and excellent stability to varus and valgus stress. The flexion block was then placed with the knee held at 90 degrees. There was excellent stability to varus and valgus at 90 degrees with no gapping medially or laterally. Next the box cutting jig was placed on the distal femur. The box cut was made and the femoral trial was impacted into position. Lug holes were drilled in the distal femur. We then reexposed the tibia. The tibia was sized to a 7 for a fixed bearing component and pinned in external rotation on the cut tibial surface. The intramedullary drill followed by the keel punch were used to prepare the tibia. The tibial tray with a 6 mm thickness polyethylene liner was placed and the knee was brought through a full range of motion. There was excellent stability to varus valgus stress throughout a full range of motion, which was approximately 0-125 degrees. Next the trial components were removed. I then injected the posterior capsule and periosteum with the periarticular injection cocktail. The bone cuts were then irrigated and dried while the cement was mixed on the back table. The femoral component was cemented on first. Excess cement was removed. A lap sponge was placed over the femoral component for protection, then the tibia was subluxated anteriorly. The all polyethylene tibial component was then cemented in place. Again excess cement was removed. The knee was brought into full extension and held there until the cement cured. The patella was cemented and clamped. Dilute Betadine solution was then allowed to soak in the knee while the cement cured. Once the cement was fully cured, the knee was irrigated out, the tourniquet was let down and meticulous hemostasis was ensured. The knee was brought through a full range of motion. I was were very happy with the patella tracking and the stability. We then began to close. Interrupted 0 Vicryl suture was used to repair the patellar retinaculum in [id number] fashion. The quadriceps and patellar tendons were run with #1 Vicryl. The deep dermal layer was closed with interrupted 2-0 Vicryl. Dermabond and Zipline was used for the skin, followed by a Silverlon dressing. A compressive Alex wrap was placed and the knee was placed into a knee immobilizer. Patient's sedation was lifted and was transferred to recovery room in stable condition. Summary of implants: Depuy Attune Posterior Stabilized Cemented Femur, size 7 right Attune All-polyethylene tibial component, posterior stabilized 6 mm thickness, size 7 Attune patella medialized dome, size 38 2 batches of Palacos bone cement Postoperative course: Of note, patient had some T wave inversions during the case. He was evaluated by the anesthesiologist Dr. Patton. Plan will be for a twelve-lead EKG to be done in the PACU. Hospitalist service will be consulted for comanagement. Patient will be admitted to the telemetry floor for pain control and monitoring. Weightbearing as tolerated with a walker with no knee range of motion for 48 hours. Aspirin for DVT prophylaxis. I attest to the content of the Intraoperative Record and any orders documented therein. Any exceptions are noted below.
--- NOTE | 2024-10-21 11:33 | Operative Report ---
Post Operative Report Pre & Post Diagnosis Operation Date: 10/21/24 09:10 Pre-Op Diagnosis: Right Knee Osteoarthritis Post-Op Diagnosis: Right Knee Osteoarthritis I identified the patient and participated in the time-out.: Yes Procedure Operation Date: 10/21/24 09:10 Actual Procedures p Right Total Knee Arthroplasty(Right) - Sang Marina MD Surgeon Sang Marina MD Pay Clerk Orlin Ernst PA-C. No resident or fellow was available to assist Estimated Blood Loss 100 Findings Consistent with Post-Op Diagnosis Specimens Right knee bone and soft tissue contents Description of Procedure I was present for the entire case. I assisted with patient positioning, prepping, draping, retraction, suctioning, wound closure, dressing application, splint application. Please refer to Dr. Marina's procedure note for full details. I attest to the content of the Intraoperative Record and any orders documented therein. Any exceptions are noted below.
[2024-10-21] MEDS ORDERED: HYDROmorphone INJ 1 MG/ML SYRINGE IV PRN (11:44)
[2024-10-21] MEDS ORDERED: ONDANSETRON INJ 2 MG/ML 2 ML VIAL IV PRN ×2 (11:44→13:25)
[2024-10-21] MEDS: HYDROmorphone INJ 2 MG/ML SYR/VIAL ONE (11:44)
[2024-10-21] MEDS ORDERED: FLUMAZENIL 0.1 MG/1 ML 10 ML VIAL IV PRN (11:44)
[2024-10-21] MEDS ORDERED: NALOXONE HCL 0.4 MG/1 ML VIAL/CARP IV PRN ×2 (11:44→13:25)
[2024-10-21] MEDS ORDERED: ATROPINE SULFATE 0.1 MG/ML 10ML SYR IV PRN (11:44)
[2024-10-21] MEDS ORDERED: PROMETHAZINE HCL 6.25 MG in SODIUM CHLORIDE 0.9% 50 ML IV PRN (11:44)
--- NOTE | 2024-10-21 12:26 | XRay Report ---
XR knee RT 1 or 2V routine CLINICAL HISTORY: Surgical Post Op COMPARISON: 10/15/2024 FINDINGS: Right knee prosthesis shows no hardware complication. There is expected soft tissue gas. IMPRESSION: Unremarkable postoperative exam. ACT 112: Negative or not required by law. Electronically signed by: Delvis Plascencia M.D. 10/21/2024 12:24 PM
[2024-10-21] MEDS ORDERED: HYDROmorphone INJ 0.5 MG/0.5 ML SYR IV PRN (13:25)
[2024-10-21] MEDS ORDERED: diphenhydrAMINE 50 MG/ML VIAL IV PRN (13:25)
[2024-10-21] MEDS ORDERED: MAGNESIUM HYDROXIDE SUSP 30 ML UDC PO PRN (13:25)
[2024-10-21] MEDS ORDERED: METOCLOPRAMIDE HCL INJ 5 MG/ML 2 ML VIAL IV PRN (13:25)
[2024-10-21] MEDS ORDERED: TAMSULOSIN HCL 0.4 MG CAP PO PRN (13:25)
--- NOTE | 2024-10-21 13:57 | Anesthesiology Progress Note ---
Date of Service October 21, 2024 Anesthesia Post Procedure Vital Signs Vital Signs: Temp Pulse Pulse Resp BP BP Pulse Ox 10/21/24 12:53 76 16 140/89 96 10/21/24 12:45 77 18 156/86 H 97 10/21/24 12:35 78 14 153/93 H 96 10/21/24 12:25 36.6 C 74 16 149/96 H 97 10/21/24 12:15 36.4 C L 79 15 144/99 H 96 10/21/24 12:05 80 15 148/86 H 99 10/21/24 11:55 79 14 170/98 H 99 10/21/24 11:45 79 19 157/67 H 95 10/21/24 11:35 80 18 152/98 H 98 10/21/24 11:25 80 15 150/103 H 96 10/21/24 11:16 36.0 C L 79 15 138/94 95 10/21/24 08:59 73 20 151/85 H 100 10/21/24 07:29 36.8 C 66 20 146/86 H 100 O2 Del Method O2 Flow Rate 10/21/24 12:53 Nasal Cannula 2 10/21/24 12:45 Nasal Cannula 2 10/21/24 12:35 Nasal Cannula 2 10/21/24 12:25 Nasal Cannula 2 10/21/24 12:15 Nasal Cannula 2 10/21/24 12:05 Nasal Cannula 2 10/21/24 11:55 Nasal Cannula 2 10/21/24 11:45 Nasal Cannula 2 10/21/24 11:35 Oxymask 8 10/21/24 11:25 Oxymask 8 10/21/24 11:16 Oxymask 8 10/21/24 08:59 Oxymask 10/21/24 07:29 Room Air Pain Intensity Right Knee: Pain Intensity: 2 Transfer of Care Handoff Completed per policy Notes Mental Status: alert / awake / arousable Patient Amnestic to Procedure: Yes Nausea / Vomiting: adequately controlled Pain: adequately controlled Airway Patency, RR, SpO2: stable & adequate BP & HR: stable & adequate Hydration State: stable & adequate Anesthetic Complications: no major complications apparent
--- NOTE | 2024-10-21 14:41 | Hospitalist Consultation ---
Date of Consultation October 21, 2024 Assessment & Plan (1) T wave inversion in EKG: Plan T wave inversion on monitor during R. TKA - Reported T-wave inversions seen by anesthesia during procedure - No chest symptoms, dyspnea, or abdominal symptoms - EKG from PACU not in chart, will order new EKG and review - Hx of HTN, HLD, male on statin and amlodipine therapy - Low probability of NSTEMI/ACS - High sensitivity troponin: 5.5 - Will sign off at this time, but will revisit if new EKG changes or chest symptoms arise Supervising Physician Co-Signing Physician Notes I personally examined the patient and verified all pope points of history and exam, discussed case, and agree with decision making with Dr Tyson feels fine. no cp no sob. exercises regularly (right now upper body/weights) but no CP/ANGELO wtih exertion. notes pins and needles feelings in both feet - seems to describe mostly on top of foot - ongoing for about a year vitals noted nad heent nc at mmm breathing unlabored no accessory muscles good effort troponin 5.5, EKG with diffuse flipped T's but more or less identical to 02/2023 EKG flipped Ts during anesthesia -nonspecific. lack of acute sx, lack of true ST depressions, normal hs-trop all quite reassuring -no prior vascular disease noted and no exertional sx (despite what sounds to be good exercise tolerance) also reasssuring obviously if he were to develop sx that we would want to evaluate devorah; should he develop exertional sx in the future also would want to evaluate - but at this time, t wave changes appear nonspecific and no other ominous findings noted foot paresthesiae - seem in line with the area of his spinal stenosis and timing seems to ?predate or at least correlate with when he needed surgery. on directed questioning no worsening, and does not seem to have motor sx. offered explanations and reassurance, he wanted me to inform his spine surgeon (notified - although to be clear no formal inpatient consult is needed at this time) DVT proph - per ortho (SCDs and asa bid) History of Present Illness Reason for Consultation: T-wave inversions during R. TKA Requesting Physician: Sang Marina MD Attending Physician: Sang Marina MD History of Present Illness Isaias Fabian is a 59 y/o M with a past medical history of HTN, DJD, lumbar radiculopathy, lumbar spinal stenosis recently at [facility] for a R. TKA procedure. Patient reports no issues during the procedure but was found to have T-wave inversions and the hospitalist team was consulted for an admission to the medical surgery unit. Patient seen, resting and eating comfortably at bedside. Patient denies chest pain, palpitations, skipped beats, SOB w/ exertion/rest, cough, wheeze, abdominal pain, reflux, nausea, and vomiting. Patient without any acute complaints and reports no pain. Patient's only concern is rehabilitation instructions for knee post-op. As patient has relatively low-risk, no chest symptoms/dyspnea/abdominal symptoms, and transient T-wave inversions found on surgical channeling machine runner, NSTEMI is low probability. 12 lead EKG is recommended to revisit T-wave abnormalities, and other ASCVD risks and risk stratification can be determined via age, demographic, lipid, diabetes, smoking, HTN risk factors but as stated above without 12 lead EKG supporting T-wave inversions, new symptoms related to CVD, or evidence of myocardial ischemia ACS probability is low. Allergies Allergy/AdvReac Type Severity Reaction Status Date / Time No Known Allergies Allergy Verified 10/21/24 07:31 Home Medications Medication Instructions Recorded Confirmed Type amlodipine 5 mg tablet 5 mg PO QAM 04/15/22 10/21/24 History atorvastatin 20 mg tablet 20 mg PO QAM 04/15/22 10/21/24 History celecoxib 200 mg capsule (Celebrex) 200 mg PO BID 10/20/24 10/21/24 History Patient History Medical History (Updated 10/21/24 @ 15:00 by Nikunj Tyson DO) Seasonal allergic rhinitis Osteoarthritis, knee Hypertension Hyperlipidemia Inmate in correctional facility Low back pain Localized swelling, mass and lump, left upper limb Eye disorder Corneal ulcer Surgical History History of lumbar surgery (07/01/23) L4-L5 Lateral Interbody Arthrodesis with Cage Placement, Posterior Non- Segmental Instrumentation>MN Surgical history unknown Social History Smoking Status: Former smoker Tobacco Type: Cigarettes Smoking End Date: 2004; Hx Alcohol Use: No Hx Substance Use: No Preferred Language: Dominican Communication Ability: Effective Hearing Ability: Normal [place] Required: No Beliefs That Will Affect Care: None Current Living Situation: Other Current Living Situation Comment: [facility] Other Information That Helps Us Care for You: No Feels Safe at Home: Yes Safety Concerns: Feels Safe At This Time Assistive Devices: Walker Physical Exam Physical Exam: General: patient resting comfortably, NAD, non-toxic in appearance, answers questions appropriately. Skin: warm, dry, intact HEENT: NC/AT, anicteric sclera, conjunctiva without injection, moist mucus membranes. Heart: +S1/S2, tachycardia, no m/r/g Lungs: equal air entry bilaterally, no rales/rhonchi/wheezes Abd: +BS, soft, NT/ND Ext: warm, no clubbing/cyanosis or edema Neuro: nonfocal, speech intact, no facial droop, moving all extremities. Results & Data Results & Data Vital Signs (Past 12 Hours) Vital Signs Temp Pulse Pulse Resp BP BP Pulse Ox 10/21/24 13:40 36.9 C 91 H 14 161/82 H 97 10/21/24 12:53 76 16 140/89 96 10/21/24 12:45 77 18 156/86 H 97 10/21/24 12:35 78 14 153/93 H 96 10/21/24 12:25 36.6 C 74 16 149/96 H 97 10/21/24 12:15 36.4 C L 79 15 144/99 H 96 10/21/24 12:05 80 15 148/86 H 99 10/21/24 11:55 79 14 170/98 H 99 10/21/24 11:45 79 19 157/67 H 95 10/21/24 11:35 80 18 152/98 H 98 10/21/24 11:25 80 15 150/103 H 96 10/21/24 11:16 36.0 C L 79 15 138/94 95 10/21/24 08:59 73 20 151/85 H 100 10/21/24 07:29 36.8 C 66 20 146/86 H 100 O2 Del Method O2 Flow Rate 10/21/24 13:40 Nasal Cannula 1 10/21/24 12:53 Nasal Cannula 2 10/21/24 12:45 Nasal Cannula 2 10/21/24 12:35 Nasal Cannula 2 10/21/24 12:25 Nasal Cannula 2 10/21/24 12:15 Nasal Cannula 2 10/21/24 12:05 Nasal Cannula 2 10/21/24 11:55 Nasal Cannula 2 10/21/24 11:45 Nasal Cannula 2 10/21/24 11:35 Oxymask 8 10/21/24 11:25 Oxymask 8 10/21/24 11:16 Oxymask 8 10/21/24 08:59 Oxymask 10/21/24 07:29 Room Air Resident Activity Tracking Resident Involvement: Resident Care Provided Care Provided: Adult Hospital Medicine
[2024-10-21] MEDS: LABETALOL HCL IV 5 MG/ML 20ML IV STA (14:55)
[2024-10-21] MEDS: KETOROLAC TROMETHAMINE 15 MG/ML VIAL IV SCH (14:57)
[2024-10-21] MEDS: SODIUM CHLORIDE 0.9% 1,000 ML IV SCH (15:00)
--- NOTE | 2024-10-21 17:08 | Billing Data ---
Date of Service October 21, 2024 Coding Level of Care Code 63541 SUB INP/OBS CARE MIN
[2024-10-21] MEDS: Scopolamine CHECK PATCH PLACEMENT SCH (17:17)
[2024-10-21] MEDS: TRANEXAMIC ACID / 0.7% NACL 1,000 MG/100 ML BAG IV SCH (17:20)
[2024-10-21] MEDS: DOCUSATE SODIUM 100 MG CAP PO SCH (20:17)
[2024-10-21] MEDS: SENNA 8.6 MG TAB PO SCH (20:17)
[2024-10-21 20:25] VITALS: RESP 18
[2024-10-22 03:54] LABS: Hematocrit (blood only) 33.0 % (42.0-52.0); Hemoglobin 11.5 g/dl (14.0-18.0); Mean Corpuscular Hemoglobin 30.6 pg (25.0-34.0); Mean Corpuscular Volume 87.8 fL (80.0-100.0); Platelet Count 236 K/uL (130-400); RDW Standard Deviation 40.7 fL (36.4-46.3); Red Blood Count 3.76 M/uL (4.70-6.10); White Blood Count 10.94 K/ul (4.8-10.8)
[2024-10-22 04:08] LABS: Anion Gap 9.0 (3-11); Blood Urea Nitrogen 13.0 mg/dl (6-23); Calcium 8.3 mg/dl (8.6-10.3); Carbon Dioxide 21.0 mmol/L (21-32); Chloride 108.0 mmol/L (98-107); Creatinine Clr Calc Pharmacy 89.3 ml/min; Glucose 134.0 mg/dl (70-99(Fasting)); Potassium 3.6 mmol/L (3.5-5.1); Sodium 138.0 mmol/L (136-145)
--- NOTE | 2024-10-22 05:14 | Electrocardiogram Report ---
Test Reason : Blood Pressure : */* mmHG Vent. Rate : 87 BPM Atrial Rate : 87 BPM P-R Int : 200 ms QRS Dur : 84 ms QT Int : 368 ms P-R-T Axes : 48 23 -33 degrees QTcB Int : 442 ms Sinus rhythm with Premature atrial complexes T wave abnormality, consider inferolateral ischemia Abnormal ECG When compared with ECG of 21-Oct-2024 11:31, Premature atrial complexes are now Present Confirmed by Yunior Simental ([id number]) on 10/22/2024 5:14:08 AM Referred By: Sang Marina Confirmed By: Yunior Simental
[2024-10-22 06:07] VITALS: O2SAT 98
[2024-10-22 07:43] VITALS: TEMP 99.3
[2024-10-22] MEDS: ASPIRIN 81 MG ECTAB PO SCH (09:35)
[2024-10-22] MEDS: ATORVASTATIN 20 MG TAB PO SCH (09:35)
[2024-10-22] MEDS: MULTIVITAMIN TAB PO SCH (09:35)
[2024-10-22] MEDS: dexAMETHasone 10 MG in SYRINGE 0 ML IV SCH (09:37)
[2024-10-22] MEDS ORDERED: KETOROLAC TROMETHAMINE 15 MG/ML VIAL ONE (10:24)
--- NOTE | 2024-10-22 11:27 | Discharge Summary ---
Date of Service October 22, 2024 Principal Diagnosis Right knee osteoarthritis. Status post right total knee arthroplasty. Discharge Data Allergies Allergy/AdvReac Type Severity Reaction Status Date / Time No Known Allergies Allergy Verified 10/21/24 07:31 Consultations 10/21/24 13:25 Consult Hospitalist Routine Procedures Performed Operation Date: 10/21/24 09:10 Actual Procedures p Right Total Knee Arthroplasty(Right) - Sang Marina MD Hospital Course (1) S/P total knee arthroplasty: Isaias Fabian is a 59-year-old male inmate history of hypertension, high cholesterol, osteoarthritis, who underwent a right total knee arthroplasty with Dr. Marina on 10/21/[address] [facility]. Surgery was uncomplicated. He was admitted to the hospital for observation. Patient received 24 hours of IV Ancef postoperatively. His pain was controlled with Tylenol, anti-inflammatories, and prescription pain medication. He remained stable throughout his postoperative course. Anesthesia was concerned that he may have some inverted T waves during surgery, so a consultation with the hospitalist group was placed. He was evaluated by them and given his lack of symptoms and largely unchanged EKG findings, was cleared with no additional follow-up necessary unless he becomes symptomatic. His postoperative x-ray did not show any acute complications. Postoperative blood work showed a mild elevation of white blood cells at 10.94 likely secondary to stress of surgery and steroids. Mild anemia with a hemoglobin of 11.5 likely secondary to acute blood loss from surgery. His Alex wrap was removed and the underlying silverlon dressing was clean, dry, intact. Patient was given wound care instructions postoperatively. He is able to shower as long as the dressing is intact. He was instructed not to submerge the wound underwater. Patient was evaluated by PT and OT and cleared to return back to [facility] Advised him that he would benefit from using a raised toilet seat, shower bench in the [facility]. He will use a rolling walker at all times when ambulating. Will use a knee immobilizer for the first 48 hours during ambulation and then as long as his quad function has returned he can discontinue the knee immobilizer. He was instructed to ice 20 minutes every 1-2 hours. Ice 20 minutes every 1-2 hours. DVT prophylaxis aspirin 81 mg twice daily. JAYESH stockings for the first 2 weeks. Pain management: Tylenol 1000 mg every 8 hours. He will resume his Celebrex as prescribed. Per records he is taking 200 mg twice daily. Instructed him that he should only be taking this for 2 weeks at this dose, and then should reduce to either 200 mg once daily or 100 mg twice daily. He will likely benefit from prescription pain medication which will be left to the discretion of care home/infirmary. Elevate above heart when at rest. Work on range of motion exercises 0 to 90 degrees is goal for now. Outpatient follow-up will be coordinated with our office. (2) T wave inversion in EKG: Total Time Total Time Spent Total Time Spent (In Minutes): 20 Discharge Plan Discharge Items Patient Disposition: Home - Self-Care Reason For Visit: Right Knee Osteoarthritis Discharge Diagnosis: s/p right total knee arthroplasty Activity: Per Instructions section Non-emergency contact: Surgeon Call non-emergency contact if: your pain is worsening, you have a fever, your wound has increased redness, your wound has increased drainage and your wound pain has increased Follow-up/Referrals: Alison PALMER [Primary Care Provider] - Diet: Heart Healthy Addtl Attending Provider Instructions: Post-operative Instructions Dear Patient and Family/Friends, Before you are discharged from the hospital, it is important to know what to expect when you get home after surgery. To that end, we have created this sheet of discharge instructions which covers many commonly asked questions. Make sure you go through this sheet in its entirety with your nurse before you are discharged. Please note that we will go over the specifics of your surgery and recovery when you return for your first post-operative visit. Sincerely, Dr. Marina Pain Expect to be in a fair amount of pain after surgery. Remember, our goal is not to eliminate your pain, but to make it tolerable. It is a good idea to stay ahead of your pain by taking the medications you were prescribed once you get home. Typically, the pain starts improving 3-7 days after surgery. You should start weaning off the narcotic pain medication (oxycodone, hydrocodone, hydromorphone, morphine) as soon as your pain improves. - Tylenol 1000 mg every 8 hours as needed - Resume your Celebrex as prescribed. Generally you should only be taking Celebrex 200 mg twice daily for 2 weeks and then it should be reduced to 200 mg once daily or 100 mg twice daily. - Prescription pain medication as needed per care home. Clot prevention - Aspirin 81 mg twice daily until further notice Ice Ice your operative site at least 5 times a day for 15-30 minutes at a time. Make sure you have a thin cloth between the ice or cooling unit and your skin to prevent de leon bite. This is especially important if you received a nerve block. Continue icing your operative site for the first 5-7 days after surgery, then as needed. Diet/Nausea/Vomiting Start by drinking clear liquids and eating crackers. If you can tolerate this, then you may resume your normal diet. If you feel nauseated or vomit, take Zofran/ondansetron (if prescribed). Please call our office if you have intractable nausea or vomiting, or, if after hours, you may go to the Emergency Room for help. Constipation Constipation is a common side effect of narcotic pain medication. If you have not had a bowel movement within 2 days after surgery, we recommend purchasing an over the counter laxative such as Milk of Magnesia, Dulcolax, or Miralax from a local pharmacy, and taking it as instructed. Call our clinic if any questions. Slings and Braces Use the knee immobilizer when you are up and moving around for the first 48 hours after surgery. As long as you feel comfortable, you can discontinue the knee immobilizer after 48 hours. Use a rolling walker at all times when up and moving around to prevent a fall. Nerve block The anesthesia team sometimes places a nerve block to help with post-operative pain control. This results in significant numbness and inability to move the extremity. The nerve block usually wears off in 8-12 hours, but sometimes can last up to 24 hours. Please call our office if you are still unable to move your extremity after 24 hours, unless you received a pain pump to take home. Nerve blocks typically wear off quickly, so start taking pain medication as soon as you start feeling soreness near your surgical site. Weight bearing and Range of Motion. You can be weightbearing as tolerated. Use the walker for stability. Your range of motion is as tolerated. Be sure to work on getting your knee fully straight and focus on bending to 90 degrees as your first goal. Physical therapy Work on your physical therapy exercises as instructed. Leg lifts Ankle pumps Range of motion Wound care and showering You have waterproof dressing in place on your knee. As long as this is intact you may shower. Do not submerge the wound underwater. If the dressing is not intact, you should not be getting this wet in the shower. JAYESH stockings Wear the white stockings on both legs until further direction. Follow-up We will continue to follow you throughout your postoperative timeframe. When to call the office It is normal to have swelling and bruising in the limb that was operated on. This will improve with time. It is also normal to have fevers for the first 2 days after surgery. Reasons you should call your doctor include: Uncontrolled pain; Nausea, vomiting, or constipation that does not improve with medication; Fevers over 101.5, chills, sweats; Drainage or bleeding from the wound; Foul odor; Spreading areas of redness; Any other concerns. Contact Information Please call Dr. Marina's office at [phone] with any concerns. Pending Studies at Discharge: Yes Studies:: Bone and soft tissue pathology routine Stand-Alone Forms: My [facility], Smoking Cessation Medications and DC Order Prescriptions: New aspirin 81 mg Tablet,Delayed Release (Dr/Ec) 81 mg PO BID Qty: 30 0RF acetaminophen [Tylenol Extra Strength] 500 mg Tablet 1,000 mg PO Q8 Qty: 30 0RF oxycodone 5 mg Tablet 5 - 10 mg PO Q4H PRN (Reason: pain) Qty: 10 0RF Continued atorvastatin 20 mg tablet 20 mg PO QAM amlodipine 5 mg tablet 5 mg PO QAM celecoxib [Celebrex] 200 mg Capsule 200 mg PO BID Discharge Orders: Discharge Order (Routine); Ordered 10/22/24 Ordered By: Orlin Ernst Admission Data Admit Date/Time: 10/21/24 11:28 Attending Provider: Sang Marina Admit Provider: Sang Marina Primary Care Provider: Alison PALMER Other Providers: Silvestre Harris Other Interventions: Discharge Summary Assessment (RN) Last Done: 10/22/24 13:27
--- NOTE | 2024-10-22 11:27 | Orthopedic Progress Note ---
Date of Service October 22, 2024 Assessment & Plan (1) S/P total knee arthroplasty: Plan: Postop day #1 status post right total knee arthroplasty with Dr. Marina. Patient is doing very well. His pain is controlled. Slight hypertension noted, vitals otherwise stable. Postoperative x-ray shows expected findings. Postoperative blood work shows mild elevation of white blood cells at 10.94 likely secondary to stress of surgery and steroids. Mild anemia with a hemoglobin of 11.5 likely secondary to acute blood loss from surgery. Patient was evaluated by PT and OT and cleared to return back to [facility]. Alex wrap was taken down. Dressing is clean, dry, and intact. He was given wound care instructions, can shower as long as the dressing is intact. Do not submerge wound underwater. Reviewed that he would benefit from a shower bench, raised toilet seat, and rolling walker. He should use the walker at all times. Needs to use the knee immobilizer for the first 48 hours after surgery while ambulating. After that as long as he feels comfortably he can discontinue the knee immobilizer. Ice 20 minutes every 1-2 hours. DVT prophylaxis aspirin 81 mg twice daily Pain management: Tylenol 1000 mg every 8 hours. He will resume his Celebrex as prescribed. Per records he is taking 200 mg twice daily. Instructed him that he should only be taking this for 2 weeks at this dose, and then should reduce to either 200 mg once daily or 100 mg twice daily. He will likely benefit from prescription pain medication which will be left to the discretion of penitentiary[facility]infirmary. Elevate above heart when at rest. Work on range of motion exercises 0 to 90 degrees is goal for now. Outpatient follow-up will be coordinated with our office. (2) T wave inversion in EKG: Plan: Patient evaluated by hospitalist and signed off. EKG without significant changes from 2022. Patient without any symptoms. Appreciate hospitalist evaluation. Admission and Anticipated Discharge Date Admission Date: October 21, 2024 Subjective Patient is seen in bed this morning. He states that he is doing well -his pain is controlled. Was able to ambulate with physical therapy and feels well enough [facility] He has been working on straight leg raises and ankle pumps. He denies any fever, chills, chest pain, shortness of breath, nausea, or vomiting. Endorses a little bit of tingling in both of his toes, no changes from his baseline. Physical Exam Constitutional: Resting comfortably in bed. No distress. Pleasant. Cardiovascular: Right DP pulse 2+ Musculoskeletal: Right lower extremity: Alex wrap taken down. Silverlon dressing is in place and intact. There is no bloody drainage through the window. There is some mild soft tissue swelling about the knee with ecchymotic changes. Thigh and lower leg compartments are soft. Strength 5/5 with ankle plantarflexion, dorsiflexion, eversion. Moves all toes. Skin: [place] and warm, dry Neurologic: No sensory deficits bilateral lower extremities to light touch L3-S1 distribution. Results & Data Vital Signs (Past 12 Hours) Vital Signs Temp Pulse Pulse Resp BP Pulse Ox O2 Del Method 10/22/24 07:43 99.3 F 70 18 157/77 H 98 Room Air 10/22/24 03:07 98.8 F 94 H 18 160/79 H 98 Room Air Laboratory Results 10/22/24 03:41 WBC 10.94 H RBC 3.76 L Hgb 11.5 L Hct 33.0 L MCV 87.8 MCH 30.6 MCHC 34.8 RDW Std Deviation 40.7 RDW Coeff of Gina 12.7 Plt Count 236 MPV 10.7 Sodium 138 Potassium 3.6 Chloride 108 H Carbon Dioxide 21 Anion Gap 9 BUN 13 Creatinine 1.13 Est Cr Clr Drug Dosing 89.3 eGFR 74.87 BUN/Creatinine Ratio 11.5 Glucose 134 H Calcium 8.3 L Diagnostic Findings Knee X-Ray 10/21/24 11:28 XR knee RT 1 or 2V routine CLINICAL HISTORY: Surgical Post Op COMPARISON: 10/15/2024 FINDINGS: Right knee prosthesis shows no hardware complication. There is expected soft tissue gas. IMPRESSION: Unremarkable postoperative exam. ACT 112: Negative or not required by law. Electronically signed by: Delvis Plascencia M.D. 10/21/2024 12:24 PM (1) S/P total knee arthroplasty Laterality: right Qualified Code(s): Z96.651 - Presence of right artificial knee joint
[2024-10-22 13:29] VITALS: BP 159/86; PULSE 94
[2024-10-22] MEDS ORDERED: CeleBREX 200 MG CAP PO SCH (21:00)
[2024-10-24] MEDS ORDERED: Scopolamine REMOVE TRANSDERM PATCH ONE (08:00)
== END 2024-10-22 13:59 | disposition home or self-care (01) ==
LOC: 2N 07:03 → ASU 07:03 → UNDODISOB 10-22 13:29